=== PATIENT | male | born 1980 | race Caucasian/White ===

== ENCOUNTER 2016-10-01 14:10 | Emergency (ER) | payer OTHER ==
[2016-10-01 14:13] VITALS: BP 136/75; PULSE 64; RESP 15; TEMP 98.8; O2SAT 99
[2016-10-01] MEDS ORDERED: BACT800T5 PO (17:14)
[2016-10-01] MEDS ORDERED: CEPH-460 PO (17:14)
[2016-10-01] MEDS ORDERED: IBUP800T23 PO (17:14)
--- NOTE | 2016-10-01 17:14 | PD ---
HPI Chief Complaint: Skin Problem Time Seen by Provider: 17:11 Travel History International Travel<30 days: No Contact w/Intl Traveler<30days: No Traveled to known affect area: No History of Present Illness HPI 36-year-old male presents emergency Department with complaint of lesions to bilateral upper extremities and bilateral lower extremities 4-5 days. No one else with similar symptoms. Denies fever, vomiting. Says the lesions are painful. Denies IV drug use. Denies history of MRSA. Reports being up-to- date on tetanus vaccination. Has not taken any medications or tried any treatments to alleviate his symptoms. Has no other medical complaints. No known allergies. No other modifying factors or associated signs and symptoms. PFSH Social History Tobacco Use: No Allergies-Medications (Allergen,Severity, Reaction): Coded Allergies: No Known Allergies (Unverified , 10/01/16) Reported Meds & Prescriptions Reported Meds & Active Scripts Active Ibuprofen 800 Mg Tab 800 Mg PO Q6HR PRN Keflex (Cephalexin) 500 Mg Cap 500 Mg PO Q6H 10 Days Bactrim DS (Sulfamethoxazole-Trimethoprim) 800-160 Mg Tab 1 Tab PO BID 10 Days Review of Systems Except as stated in HPI: all other systems reviewed are Neg Physical Exam Narrative GENERAL: Well-nourished, well-developed male patient, in no acute distress; afebrile, nontoxic-appearing SKIN: Warm and dry. Multiple tiny crusted lesions noted to right upper extremity, 1 to left upper extremity, and multiple to bilateral lower legs; one area to the right hand that is without a scab and without drainage noted: No areas with sciatic process noted. No lymphangitis noted. HEAD: Atraumatic. Normocephalic. EYES: Pupils equal and round. No scleral icterus. No injection or drainage. ENT: Mucosa pink and moist. Airway patent. NECK: Trachea midline. CARDIOVASCULAR: Regular rate. RESPIRATORY: No accessory muscle use. GASTROINTESTINAL: Flat. MUSCULOSKELETAL: No obvious deformities. No clubbing. No cyanosis. No edema. NEUROLOGICAL: Awake and alert. Oriented 3. No obvious cranial nerve deficits. Motor grossly within normal limits. Normal speech. PSYCHIATRIC: Appropriate mood and affect; insight and judgment normal. Data Data Last Documented VS Vital Signs Date Time Temp Pulse Resp B/P Pulse Ox O2 Delivery O2 Flow Rate FiO2 10/01/16 14:13 98.8 64 15 136/75 99 Orders Wound Culture And Gram Stain (10/01/16 17:15) [facility] Medical Decision Making Medical Screen Exam Complete: Yes Emergency Medical Condition: Yes Medical Record Reviewed: Yes Differential Diagnosis Impetigo, abscess, insect bites Narrative Course 36-year-old male with multiple skin lesions to bilateral upper and lower extremities. Most consistent with impetigo. Up-to-date on tetanus vaccination. Patient is nontoxic-appearing. Denies fever, vomiting. Wound culture pending. Keflex, Bactrim, ibuprofen prescribed for home. Instructed patient to follow up with primary care provider. Patient verbalizes understanding and agreement with treatment plan. Patient is medically cleared and stable for discharge. Discussed reasons to return to the emergency department. Patient agrees with treatment plan. The patients vital signs are stable and the patient is stable for outpatient follow-up and treatment. Patient discharged home, stable and in no acute distress. Diagnosis Primary Impression: Skin lesions, generalized Referrals: [facility] [employer] Primary Care Physician Patient Instructions: Abscess (ED), General Instructions, Impetigo (ED) Additional Instructions: Complete full course of antibiotics Ibuprofen or Tylenol as directed and as needed for pain and inflammation Follow-up with primary care provider Return to emergency department immediately with worsening of symptoms Med/Other Pt SpecificInfo: Prescription(s) given Scripts Ibuprofen 800 Mg [id number] Mg PO Q6HR PRN (PAIN) #30 TAB Ref 0 Prov:Jeanette Prado 10/01/16 Cephalexin (Keflex)500 Mg [id number] Mg PO Q6H 10 Days Ref 0 Prov:Jeanette Prado 10/01/16 Sulfamethoxazole-Trimethoprim (Bactrim DS)800-160 Mg Tab1 Tab PO BID 10 Days Ref 0 Prov:Jeanette Prado 10/01/16 Disposition: 01 DISCHARGE HOME Condition: Stable Jeanette Prado Oct 01, 2016 17:14
== END 2016-10-01 17:29 | disposition home or self-care (01) ==
LOC: NEPK 14:10
DX: L98.9 Disorder of the skin and subcutaneous tissue, unspecified (principal); A49.01 Methicillin susceptible Staphylococcus aureus infection, unspecified site; Z79.899 Other long term (current) drug therapy
CPT/HCPCS: 86403; 87070; 87186; 87205; 99284

== ENCOUNTER 2016-11-16 16:27 | Emergency (ER) | payer OTHER ==
[~2016-11-16] VITALS: Ht 190.5 cm; Wt 90.0 kg
[~2016-11-16 16:27] MED LIST: BACT800T5 PO; CEPH-460 PO; IBUP800T23 PO
[2016-11-16 16:28] VITALS: BP 157/72; PULSE 73; RESP 15; TEMP 98.4; O2SAT 98
--- NOTE | 2016-11-16 16:32 | PD ---
Physical Exam Time Seen by Provider: 16:31 Narrative 36yo M c/o R eye blurriness x 2 weeks. +photophobia. Denies eye pain, eye drainage, fever, vomiting. Patient seen in triage. VS reviewed. Awaiting bed placement. Data Data Last Documented VS Vital Signs Date Time Temp Pulse Resp B/P (MAP) Pulse Ox O2 Delivery O2 Flow Rate FiO2 11/16/16 16:28 98.4 73 15 157/72 (100) 98 MDM Supervised Visit with ELSY: Jeanette Leahy Nov 16, 2016 16:32
--- NOTE | 2016-11-16 16:38 | PD ---
HPI . right eye blurry vision Chief Complaint: Eye Problems/Injury Time Seen by Provider: 16:35 Travel History International Travel<30 days: No Contact w/Intl Traveler<30days: No Traveled to known affect area: No History of Present Illness HPI 36 yr old male here with c/o blurry vision x 2 weeks after he sprayed bug spray in his eyes. He has no pain, no photophobia, no discharge. He has no other complaints. PFSH Social History Tobacco Use: No Allergies-Medications (Allergen,Severity, Reaction): Coded Allergies: No Known Allergies (Unverified , 11/16/16) Reported Meds & Prescriptions Reported Meds & Active Scripts Active Ibuprofen 800 Mg Tab 800 Mg PO Q6HR PRN Keflex (Cephalexin) 500 Mg Cap 500 Mg PO Q6H 10 Days Bactrim DS (Sulfamethoxazole-Trimethoprim) 800-160 Mg Tab 1 Tab PO BID 10 Days Review of Systems General / Constitutional: No: Fever Eyes: Positive: Blurred Vision, No: Diploplia, Photophobia, Drainage, Redness, Visual changes HENT: No: Headaches Cardiovascular: No: Chest Pain or Discomfort Respiratory: No: Shortness of Breath Gastrointestinal: No: Abdominal Pain Genitourinary: No: Dysuria Musculoskeletal: No: Pain Skin: No Rash Neurologic: No: Weakness Psychiatric: No: Depression Endocrine: No: Polydipsia Hematologic/Lymphatic: No: Easy Bruising Physical Exam Narrative GENERAL: AAO x 3, no acute distress, Well-nourished, well-developed patient. SKIN: Warm and dry. No visible rashes or bruising. HEAD: Normocephalic and atraumatic. EYES: No scleral icterus. No injection or drainage. EOM intact, PERRLA no overt abnormality. Negative for corneal abrasion with eye staining ENT: No nasal drainage noted. Mucous membranes pink. Airway patent. NECK: Supple, trachea midline. No JVD. CARDIOVASCULAR: Regular rate and rhythm without murmurs, gallops, or rubs. RESPIRATORY: Breath sounds equal bilaterally. No accessory muscle use. No rhonchi or rales. GASTROINTESTINAL: visual inspection normal EXTREMITIES: No cyanosis or edema. BACK: Nontender without obvious deformity. No CVA tenderness. NEURO: CN II-12 intact, PSYCH: AAO x 3, normal affect. Data Data Last Documented VS Vital Signs Date Time Temp Pulse Resp B/P (MAP) Pulse Ox O2 Delivery O2 Flow Rate FiO2 11/16/16 16:28 98.4 73 15 157/72 (100) 98 Orders Orders Proparacaine 0.5% Opth Soln (Alcaine 0.5 (11/16/16 16:45) MDM Medical Decision Making Medical Screen Exam Complete: Yes Emergency Medical Condition: No Medical Record Reviewed: Yes Differential Diagnosis chemical burn, less likely conjunctivitis, less likely fb Narrative Course A medical screening exam was performed: At the time of evaluation the presenting medical condition was determined not to be of an emergent nature. The patient was given the option of receiving additional care, but declined. Patient was given options for additional community resources from which to obtain care. The Patient Has Been advised to seek medical attention for their presenting complaint. The patient has been advised to return to the ER at any time if an emergent condition develops. I discussed the case with my attending Dr. Crawford, who was in agreement with screening patient out. Financial counselor discussed f/u care with the patient. Diagnosis Primary Impression: Encounter for medical screening examination Condition: Stable Myriam Colvin Nov 16, 2016 16:38
[2016-11-16] MEDS ORDERED: PROPARACAINE HCL 0.5% OPHT SOLN 15 ML BTL EACH EYE ONE (16:45)
== END 2016-11-16 17:23 | disposition left against medical advice (07) ==
LOC: NEPK 16:27
DX: H53.8 Other visual disturbances (principal)
CPT/HCPCS: 99281